=== PATIENT | female | born 1995 | race Caucasian/White ===

== ENCOUNTER 2022-01-23 21:19 | Outpatient (CLI) | payer OTHER ==
[~2022-01-23] VITALS: Ht 165.1 cm; Wt 64.1 kg
--- NOTE | 2022-01-23 19:45 | NUR ---
ON TO UNIT, AMBULATORY, WITH COMPLAINTS OF PELVIC PRESSURE, CONTRACTIONS, VAGINAL SWELLING. CHANGES INTO GOWN, MONITORS ON, PHYSICAL ASSESSMENT COMPLETED, SVE, VS OBTAINED, ORIENTED TO ROOM.
[2022-01-23 19:50] VITALS: BP 100/64; PULSE 88; TEMP 99.1
[2022-01-23 20:30] VITALS: BP 102/54; PULSE 76; TEMP 98.9
[2022-01-23] MEDS ORDERED: LEXAPRO20 MG PO (21:22)
[2022-01-23] MEDS ORDERED: PRENATAL TABLET PO (21:23)
[2022-01-23] MEDS ORDERED: TYLENOL 325MG325 MG PO (21:24)
[2022-01-23] MEDS ORDERED: ASPIRIN 81M81 MG/TA2 PO (21:25)
[2022-01-23] MEDS ORDERED: NATURAL IRON65 MG PO (21:26)
--- NOTE | 2022-01-23 22:29 | NUR ---
SVE HIGH AND POSTERIOR, UNABLE TO FEEL CERVIX, PT UNABLE TO TOLERATE FURTHER ASSESSMENT. DISCHARGE VS OBTAINED, DISCHARGE TEACHING COMPLETED, VERBALIZES UNDERSTANDING.
== END 2022-01-23 23:39 | disposition home or self-care (01) ==
LOC: LDR 21:19 → LDRO 21:19 → EDSTATUS 01-28 08:08
DX: O47.03 False labor before 37 completed weeks of gestation, third trimester (principal); O23.593 Infection of other part of genital tract in pregnancy, third trimester; O26.893 Other specified pregnancy related conditions, third trimester; Z3A.29 29 weeks gestation of pregnancy